=== PATIENT | male | born 1975 | race Hispanic/Latino ===

== ENCOUNTER 2019-09-24 02:36 | Emergency (ER) | payer OTHER ==
[2019-09-24] MEDS ORDERED: TETANUS/DIPHTHERIA TOXOID [ADULT] 0.5 ML VIAL IM ONE (03:05)
[2019-09-24 03:15] LABS: BASOPHILS % (AUTO) 0.2 % (0.0-5.0); EOSINOPHILS % (AUTO) 1.1 % (0.0-8.0); LYMPHOCYTES % (AUTO) 37.1 % (21.0-51.0); MEAN CORPUSCULAR HEMOGLOBIN 31.5 pg (27.0-33.0); MEAN CORPUSCULAR HGB CONC 33.8 g/dL (32.0-36.0); MEAN CORPUSCULAR VOLUME 93.4 fL (79-99); MONOCYTES % (AUTO) 4.6 % (3.0-13.0); NEUTROPHILS % (AUTO) 56.6 % (40.0-77.0); PLATELET COUNT (AUTO) 326 K/uL (130-400); RED BLOOD CELL COUNT(AUTO) 4.82 MIL/uL (4.50-6.20); RED CELL DISTRIBUTION WIDTH 12.4 % (11.0-15.5); WHITE BLOOD COUNT (AUTO) 12.1 K/uL (4.8-10.8)
[2019-09-24 03:49] LABS: APPEARANCE,URINE Clear (CLEAR); BILIRUBIN,URINE Negative (NEGATIVE); COLOR,URINE Yellow (YELLOW); GLUCOSE, URINE (UA) Negative (NEGATIVE); KETONES,URINE Negative (NEGATIVE); LEUKOCYTE ESTERASE ,URINE Negative (NEGATIVE); NITRATE,URINE Negative (NEGATIVE); OCCULT BLOOD,URINE Small (NEGATIVE); PH,URINE 5.5 (5.0-8.0); PROTEIN,URINE Negative (NEGATIVE); UROBILINOGEN,URINE 0.2 mg/dL (0.2-1.0)
[2019-09-24 03:50] LABS: INR 0.91 (0.85-1.15); PARTIAL THROMBOPLASTIN TIME 26.8 SEC (26.3-35.5); PROTHROMBIN TIME 9.9 SEC (9.6-11.6)
[2019-09-24 03:55] LABS: BACTERIA,URINE None Seen /HPF (None Seen); RBC,URINE 0-1 /HPF (0-1); SQUAMOUS EPITHELIAL CELL,UR Rare /HPF (0-2); WBC,URINE None Seen /HPF (0-1)
[2019-09-24 03:55] LABS: CREATININE 0.7 mg/dL (0.5-1.5); POTASSIUM 3.2 mmol/L (3.5-5.1)
[2019-09-24 03:56] LABS: AMPHET/METH SCREEN,URINE NEGATIVE (NEGATIVE); BARBITURATE SCREEN, URINE NEGATIVE (NEGATIVE); BENZODIAZEPINES SCREEN,URINE NEGATIVE (NEGATIVE); CANNABINOID SCREEN,URINE NEGATIVE (NEGATIVE); COCAINE SCREEN,URINE NEGATIVE (NEGATIVE); OPIATE SCREEN,URINE NEGATIVE (NEGATIVE); PHENCYCLIDINE SCREEN,URINE NEGATIVE (NEGATIVE)
[2019-09-24 03:59] LABS: ALBUMIN 3.9 g/dL (3.5-5.0); BILIRUBIN,TOTAL 0.2 mg/dL (0.2-1.0)
== END 2019-09-24 04:19 ==
LOC: EDH 02:36
DX: S01.112A Laceration without foreign body of left eyelid and periocular area, initial encounter (principal); F10.129 Alcohol abuse with intoxication, unspecified; V49.49XA Driver injured in collision with other motor vehicles in traffic accident, initial encounter; Y93.89 Activity, other specified; Y92.89 Other specified places as the place of occurrence of the external cause; Y99.8 Other external cause status
CPT/HCPCS: 12011; 36415; 70450; 71250; 72125; 74176; 80053; 80305; 81001; 82550; 83690; 84484; 85025; 85610; 85730; 90471; 90714; 93005; 99285; G0480

== ENCOUNTER 2022-03-17 14:30 | Emergency (ER) | payer OTHER ==
[~2022-03-17] VITALS: Ht 165.1 cm; Wt 89.8 kg
[2022-03-17 14:33] VITALS: BP 112/71
[2022-03-17] MEDS ORDERED: LIDOCAINE HCL 1% 10 ML VIAL ONE (16:51)
[2022-03-17] MEDS ORDERED: SULFAMETHOX-TMP DS 800/160 TAB PO SCH (17:00)
[2022-03-17] MEDS ORDERED: LIDOCAINE HCL MPF 1% 5ML VIAL IM SCH (17:00)
[2022-03-17] MEDS ORDERED: NAPR500T6 PO (17:08)
[2022-03-17] MEDS ORDERED: SULF1TAB42 PO (17:08)
== END 2022-03-17 17:20 | disposition home or self-care (01) ==
LOC: EDH 14:30
DX: L02.811 Cutaneous abscess of head [any part, except face] (principal); Z79.1 Long term (current) use of non-steroidal anti-inflammatories (NSAID); Z88.5 Allergy status to narcotic agent
CPT/HCPCS: 99283; 10060; 82948; J3490

== ENCOUNTER 2022-09-11 13:39 | Emergency (ER) | payer OTHER ==
[~2022-09-11] VITALS: Ht 165.1 cm; Wt 90.7 kg
[~2022-09-11 13:39] MED LIST: NAPR500T6 PO; SULF1TAB42 PO
[2022-09-11] MEDS ORDERED: DICL100T85 PO (14:50)
[2022-09-11] MEDS ORDERED: KETOROLAC 30MG VIAL (30MG/ML) IM ONE (15:00)
[2022-09-11 15:14] VITALS: BP 125/73
== END 2022-09-11 15:14 | disposition home or self-care (01) ==
LOC: EDH 13:39
DX: M25.562 Pain in left knee (principal); Z88.8 Allergy status to other drugs, medicaments and biological substances; Z79.899 Other long term (current) drug therapy
CPT/HCPCS: 99283; 73562; 96372; J1885